=== PATIENT | male | born 1970 | race Caucasian/White ===

== ENCOUNTER → 2021-05-30 | Outpatient (CLI) | payer BC ==
[~2021-05-30] MED LIST: BENADRYL 50MG C50 MG PO; DAYPRO600 MG PO; NEURONTIN300 MG PO; NORCO 7.5-3251 EACH PO; PEPCID20 MG PO; PERCOCET 5-3251 EACH PO; PREDNISONE 20 M20 MG PO
[2021-05-30 17:01] LABS: HEMOGLOBIN 15.2 gm/dl (14.0-17.5); RED BLOOD COUNT 4.69 M/UL (4.20-5.50); WHITE BLOOD COUNT 10.6 K/UL (4.5-11.0)
[2021-05-30 17:24] LABS: BUN/CREATININE RATIO 16 (0-10)
[2021-06-01 19:08] LABS: AMPHETAMINES, URINE Negative ng/mL (Cutoff=1000); BARBITURATE Negative ng/mL (Cutoff=200); BENZODIAZEPINES Negative ng/mL (Cutoff=200); CANNABINOIDS Negative ng/mL (Cutoff=20); COCAINE (METABOLITE) Negative ng/mL (Cutoff=300); CREATININE 121.6 mg/dL (20.0-300.0); MEPERIDINE Negative ng/mL (Cutoff=200); METHADONE Negative ng/mL (Cutoff=300); OPIATES Negative ng/mL (Cutoff=300); PHENCYCLIDINE Negative ng/mL (Cutoff=25); PROPOXYPHENE Negative ng/mL (Cutoff=300)
== END ==
LOC: LAB 16:31
PROVIDERS: Internal Medicine
DX: M19.049 Primary osteoarthritis, unspecified hand (principal); M25.50 Pain in unspecified joint; Z79.899 Other long term (current) drug therapy
CPT/HCPCS: 36415; 80053; 80307; 85025; 85652; 86140

== ENCOUNTER → 2021-12-01 | Outpatient (CLI) | payer BC ==
[2021-12-01 15:33] LABS: HEMOGLOBIN 15.6 gm/dl (14.0-17.5); RED BLOOD COUNT 4.86 M/UL (4.20-5.50); WHITE BLOOD COUNT 11.4 K/UL (4.5-11.0)
[2021-12-01 15:53] LABS: BUN/CREATININE RATIO 18 (0-10)
== END ==
LOC: LAB 14:37
PROVIDERS: Nurse Practitioner Women's Health
DX: M19.049 Primary osteoarthritis, unspecified hand (principal); Z79.1 Long term (current) use of non-steroidal anti-inflammatories (NSAID); Z79.899 Other long term (current) drug therapy
CPT/HCPCS: 80053; 85025

== ENCOUNTER → 2022-05-08 | Outpatient (CLI) | payer BC ==
[2022-05-08 17:02] LABS: RED BLOOD COUNT 4.41 M/UL (4.20-5.50); WHITE BLOOD COUNT 9.5 K/UL (4.5-11.0)
[2022-05-08 17:34] LABS: BUN/CREATININE RATIO 17 (0-10)
== END ==
LOC: LAB 16:25
PROVIDERS: Internal Medicine
DX: M19.049 Primary osteoarthritis, unspecified hand (principal); M25.50 Pain in unspecified joint; M79.643 Pain in unspecified hand; Z79.1 Long term (current) use of non-steroidal anti-inflammatories (NSAID); Z79.899 Other long term (current) drug therapy
CPT/HCPCS: 36415; 80053; 80307; 85025; 85652